=== PATIENT | male | born 1960 | race Caucasian/White ===

== ENCOUNTER 2019-04-19 08:05 | Outpatient (CLI) | payer OTHER, SELFPAY ==
--- NOTE | 2019-04-26 14:01 | SLEEP_ITS ---
CPAP-BiPAP titration. DATE OF STUDY: 04/19/2019 ORDERING PHYSICIAN: Renetta Soto M.D. REASON FOR THIS STUDY: Prior home sleep test with severe central sleep apnea. HISTORY: This patient is a 59-year-old male, 74 inches tall, weighing 237 pounds with a body mass index of 30.4. On March 09, 2019, he had a home sleep test showing severe central sleep apnea with an apnea-hypopnea index of 48.8 and desaturation to 67%. During this study, 64% of his apneas were central. He does not have history of congestive heart failure or strokes. His medication list does not indicate opioids. These conditions and medications can precipitate the patient to central sleep apnea. He presents now for a titration. He does snore loudly and others complain about it. He has trouble sleeping with a cold. He does not gasp for breath at night, but frequently sweats excessively at night. He does not notice his heart pounding or beating irregularly at night. He denies falling asleep during the day. He does not have loss of muscle tone with strong emotion or daytime difficulties due to excessive sleepiness. He denied sleep paralysis or vivid dreamlike scenes upon awakening or falling asleep. He does have dreams and recalls them. He denies sadness, depression, occasionally has anxiety. He occasionally notices parts of his body jerking. Bedtime is 10:30 p.m., falling asleep quickly within 2 minutes, waking twice at night to urinate, then returns to bed. Morning wake up is 5:50 a.m. Weekends, he does go to bed at 11:00 p.m. and wakes at 07:30 a.m. He takes naps in the afternoon or evening. A short nap is not refreshing. MEDICAL COMORBIDITIES: Hypertension. MEDICATIONS: Lisinopril 20 mg a day. HABITS: Previously smoked tobacco. Caffeine use daily and he drinks about 4 beers on Wednesday nights. DESCRIPTION OF THE STUDY: On the [place] Sleepiness Scale, the score is 7. This was conducted as a full night CPAP-BiPAP titration using the [employer] multiple channel system including EOG, EEG, submental EMG, EKG, nasal and oral airflow using thermistors, nasal pressure sensors, chest and abdominal belts, body position data and pulse oximetry. The study was scored using CMS guidelines. The duration of the study was 472.7 minutes. Sleep time was 229 minutes. Sleep efficiency was low at 48.4%. Sleep latency was 23.9 minutes. REM latency 113 minutes. He had 31 awakenings and spent 49% of the study awake after sleep onset 219 minutes. Sleep architecture showed 7.5% stage 1 sleep, 32.1% stage 2 sleep, 4.5% stage 3 sleep, and 7% stage REM 31.5 minutes. Sleep architecture was abnormal with a long episode of wakefulness. The middle 3rd of the night while on BiPAP at 9/5 cm. The overall apnea-hypopnea index was 42.2. The obstructive index was 10.2, and the central index was 26.5. He had 1 obstructive apnea, 4 central apneas, 4 mixed apneas, and 5 obstructive hypopneas in supine REM for an index of 26.7. He had 2 obstructive apneas, 75 central apneas, 15 mixed apneas and 27 obstructive hypopneas during supine non-REM with an index of 47.3. He had 4 obstructive apneas, 22 central apneas, 2 mixed apneas during nonsupine non-REM for an index of 36.1. The supine index was 43.7, nonsupine index 36.1. Minimum saturation was 86% with 6.7 minutes spent below 88%, 1.5% of the study. He had 145 desaturations of 4% or greater for an index of 18.4. REM desaturation index was 21. AROUSALS: 144 arousals for an index of 18.3. He had 20 apneas for an index of 2.5, 6 hypopneas for an index of 0.8, 6 snores for an index of 0.8, 80 spontaneous for an index of 10.2 and 32 limb movements for an index of 4.1. MYOCLONUS: 274 limb movements for an index of 71.8. He had 5 periodic limb movements for an index of
== END 2019-04-19 08:06 | disposition home or self-care (01) ==
LOC: ANHCSM 08:08
PROVIDERS: PCP Family Medicine; Visit Provider Family Medicine
DX: G47.31 Primary central sleep apnea (principal); Z68.30 Body mass index [BMI] 30.0-30.9, adult; I10 Essential (primary) hypertension; G47.61 Periodic limb movement disorder
CPT/HCPCS: 95811

== ENCOUNTER 2019-05-31 10:29 | Outpatient (CLI) | payer OTHER, SELFPAY ==
--- NOTE | 2019-05-31 10:53 | ECHO_ITS ---
Patient Info Name: Jamie Salinas Age: 59 years : 1960 Gender: Male Ht: 75 in Wt: 237 lbs BSA: 2.41 m2 HR: 75 bpm BP: 154 / 102 mmHg Technical Quality: Good Exam Date: 05/31/2019 11:03 AM Exam Location: [facility] Patient Status: Outpatient Admit Date: 05/31/2019 Staff Ordering Physician: Renetta Soto MD Reuse Technician: Zoey Patel RDCS Attending Provider: Renetta Soto MD Referring Physician: Charles NICOLAS; Exam Type: CA echo doppler color flow Study Info Indications - essential htn Complete two-dimensional, color flow and Doppler transthoracic echocardiogram is performed. Summary 1. Left ventricular chamber dimension is mildly enlarged. 2. Left ventricular systolic function is normal, estimated at 60-65%. 3. There is mildly increased left ventricular wall thickness. 4. The left ventricular diastolic function is grade I diastolic dysfunction. 5. E/e' 5 is not elevated. 6. Right ventricular chamber dimension is mildly enlarged. 7. Left atrial chamber dimension is mildly enlarged. 8. Right atrial chamber dimension is mildly enlarged. 9. There is trace tricuspid valve regurgitation. 10. No pulmonary hypertension, estimated pulmonary arterial systolic pressure is 21 mmHg. 11. There is trace pulmonic regurgitation. Left Ventricle E/e' 5 is not elevated. Left ventricular chamber dimension is mildly enlarged. Left ventricular systolic function is normal, estimated at 60-65%. There is mildly increased left ventricular wall thickness. The left ventricular diastolic function is grade I diastolic dysfunction. Right Ventricle Moderator band noted which is normal variant. Right ventricular chamber dimension is mildly enlarged. Right ventricular systolic function is normal. Left Atria Left atrial chamber dimension is mildly enlarged. Right Atria Right atrial chamber dimension is mildly enlarged. Aortic Valve The aortic valve is trileaflet. There is no aortic valve stenosis. There is no aortic valve regurgitation. Pulmonic Valve There is trace pulmonic regurgitation. Mitral Valve There is no mitral valve stenosis. There is no mitral valve regurgitation. Tricuspid Valve There is trace tricuspid valve regurgitation. No pulmonary hypertension, estimated pulmonary arterial systolic pressure is 21 mmHg. Pericardium/Pleural There is no pericardial effusion. Inferior Vena Cava Normal inferior vena cava with >50% collapse upon inspiration consistent with normal right atrial pressure, 5 mmHg. Aorta The aortic root size at the sinus of Valsalva is normal. Left Ventricular Outflow Tract Name Value Normal LVOT 2D LVOT Diameter 2.1 cm LVOT Doppler LVOT Peak Gradient 3 mmHg LVOT Mean Gradient 1 mmHg LVOT VTI 19 cm LVOT VTI/AV VTI Ratio 1.0 LVOT Stroke Volume 65 ml LVOT CO 11.4 l/min LVOT CI 4.7 l/min/m2 Pulmonic Valve
== END 2019-05-31 10:30 | disposition home or self-care (01) ==
LOC: ANHCARD 10:34
PROVIDERS: PCP Family Medicine; Visit Provider Family Medicine
DX: G47.31 Primary central sleep apnea (principal); I10 Essential (primary) hypertension
CPT/HCPCS: 93306